=== PATIENT | female | born 1950 | race Caucasian/White ===

== ENCOUNTER 2017-03-07 15:39 | Day surgery (SDC) | payer MEDICARE, BC ==
[~2017-03-07] VITALS: Ht 157.5 cm; Wt 75.0 kg
[~2017-03-07 15:39] MED LIST: ATOR40TA49 PO; CHOL4 PO; CIPR500T4 PO; CITRTAB8 PO; CULT10CA2 PO; FLOV110A IN; HYDR-2768 PO; HYOS1SUB PO; KCL20 PO; LORT5TAB PO; LOTR5CAP3 PO; METR-1 PO; OMEG1CAP53 PO; ONDANSETRON HCL 4 MG/2 ML VIAL IV PUSH ONE; PARO12.5CR PO; WOMETAB2 PO
[2017-03-07 15:41] VITALS: BP 159/86; PULSE 67; RESP 12; TEMP 97.7; O2SAT 100
--- NOTE | 2017-03-07 15:46 | PD ---
Physical Exam Date Seen by Provider: March 07, 2017 Time Seen by Provider: 15:42 Narrative 66 YOWF C/O FB OBSTUCTION IN THROAT. ATE CHICKEN AND FEELS STUCK IN HER THROAT. H/O STRICTURE WITH DILATION VVS WAITING FOR BED PLACEMENT MDM Medical Record Reviewed: Yes Supervised Visit with EVARISTO: Arturo Yoo March 07, 2017 15:46
[2017-03-07] MEDS ORDERED: GLUCAGON 1 MG/ML VIAL IV PUSH ONE (16:30)
--- NOTE | 2017-03-07 16:45 | PD ---
HPI Chief Complaint: Foreign Body Time Seen by Provider: 16:05 Travel History International Travel<30 days: No Contact w/Intl Traveler<30days: No Traveled to known affect area: No History of Present Illness HPI This patient has history of esophageal stricture and an esophageal obstruction. He was eating a chicken sandwich at noon and fell to get stuck in her esophagus. She feels like it is still stuck there. Severity symptoms is moderate. She cannot eat or drink anything since that time. If she tries to drink water she vomits. No alleviating factors. Duration 4 hours. PFSH Past Medical History Arthritis: Yes Asthma: Yes High Cholesterol: Yes Diverticulitis: Yes Gastrointestinal Disorders: Yes (IBS) Hiatal Hernia: Yes Hypertension: Yes Psychiatric: Yes (impression) Past Surgical History Tonsillectomy: Yes Social History Alcohol Use: Yes Tobacco Use: No Substance Use: No Allergies-Medications (Allergen,Severity, Reaction): Coded Allergies: Penicillin (Verified Allergy, Unknown, 02/20/16) Reported Meds & Prescriptions Reported Meds & Active Scripts Active Lortab 5/500 (Acetaminophen/Hydrocodone Bitart) 5 Mg/500 Mg Tab 1-2 Tab PO Q6HPRN Cipro (Ciprofloxacin HCl) 500 Mg Tab 500 Mg PO BID Flagyl (Metronidazole) 500 Mg Tab 500 Mg PO BID TAKE UNTIL GONE Reported Hyoscyamine Sulfate 0.125 Mg Tab 0.125 Mg PO DAILY Flovent Hfa (Fluticasone Propionate) 110 Mcg Aer 110 Mcg IN DAILY Culturelle (Lactobacillus-Inulin) 10 B Cap 10 B PO DAILY Citracal (Calcium Citrate) 200 Mg Tab 200 Mg PO BID Womens Daily Formula (Multiple Vitamins W/ Minerals) Formula Tab 1 Tab PO DAILY Questran 4 Gm Pkt (Cholestyramine Resin) 4 Gm Soln 4 Gm PO EVERY OTHER DAY Kcl 20 Meq Tab (Potassium Chloride) 20 Meq Tabcr 20 Meq PO DAILY Paxil 12.5 Mg Tab Cr (Paroxetine HCl) 12.5 Mg Tabcr 12.5 Mg PO DAILY Lovaza (Fish Oil) 1 Gm Cap 4 Gm PO DAILY Lipitor 40 Mg Tab (Atorvastatin Calcium) 40 Mg Tab 40 Mg PO HS Hctz (Hydrochlorothiazide) 25 Mg Tab 25 Mg PO DAILY Lotrel 5/20 (Amlodipine Besylate-Benazepril 5MG/20MG) 5 - Cap 1 Cap PO DAILY Review of Systems General / Constitutional: No: Fever Eyes: No: Visual changes HENT: No: Headaches Cardiovascular: No: Chest Pain or Discomfort Respiratory: No: Shortness of Breath Gastrointestinal: Positive: Nausea, Vomiting, Dysphagia, No: Abdominal Pain Genitourinary: No: Dysuria Musculoskeletal: No: Pain Skin: No Rash Neurologic: No: Weakness Psychiatric: No: Depression Endocrine: No: Polydipsia Hematologic/Lymphatic: No: Easy Bruising Physical Exam Narrative GENERAL: Well-nourished, well-developed patient in no apparent distress. SKIN: Focused skin assessment reveals no rash and nodules. Skin is Warm and dry. HEAD: Atraumatic. Normocephalic. EYES: Pupils equal and round. No scleral icterus. No injection or drainage. ENT: No nasal bleeding or discharge. Mucous membranes pink and moist. NECK: Trachea midline. No JVD. CARDIOVASCULAR: Regular rate and rhythm. No murmur appreciated. RESPIRATORY: No accessory muscle use. Clear to auscultation. Breath sounds equal bilaterally. GASTROINTESTINAL: Abdomen soft, non-tender, nondistended. Hepatic and splenic margins not palpable. MUSCULOSKELETAL: No obvious deformities. No clubbing. No cyanosis. No edema. NEUROLOGICAL: Awake and alert. No obvious cranial nerve deficits. Motor grossly within normal limits. Normal speech. PSYCHIATRIC: Appropriate mood and affect; insight and judgment normal. Data Data Last Documented VS Vital Signs Date Time Temp Pulse Resp B/P Pulse Ox O2 Delivery O2 Flow Rate FiO2 03/07/17 15:41 97.7 67 12 159/86 100 Orders Iv Access Insert/Monitor (03/07/17 16:24) Complete Blood Count With Diff (03/07/17 16:24) Basic Metabolic Panel (Bmp) (03/07/17 16:24) Glucagon Inj (Glucagon Inj) (03/07/17 16:30) Npo After Midnight W/ Po Meds (03/07/17 Dinner) Consent (03/07/17 17:30) Labs Laboratory Tests Test 03/07/17 16:40 White Blood Count 6.4 TH/MM3 Red Blood Count 4.55 MIL/MM3 Hemoglobin 14.1 GM/DL Hematocrit 42.9 % Mean Corpuscular Volume 94.4 FL Mean Corpuscular Hemoglobin 30.9 PG Mean Corpuscular Hemoglobin 32.8 % Concent Red Cell Distribution Width 13.0 % Platelet Count 233 TH/MM3 Mean Platelet Volume 8.9 FL Neutrophils (%) (Auto) 67.5 % Lymphocytes (%) (Auto) 22.0 % Monocytes (%) (Auto) 7.0 % Eosinophils (%) (Auto) 2.3 % Basophils (%) (Auto) 1.2 % Neutrophils # (Auto) 4.3 TH/MM3 Lymphocytes # (Auto) 1.4 TH/MM3 Monocytes # (Auto) 0.5 TH/MM3 Eosinophils # (Auto) 0.2 TH/MM3 Basophils # (Auto) 0.1 TH/MM3 CBC Comment DIFF FINAL Differential Comment Sodium Level 140 MEQ/L Potassium Level 3.8 MEQ/L Chloride Level 107 MEQ/L Carbon Dioxide Level 23.6 MEQ/L Anion Gap 9 MEQ/L Blood Urea Nitrogen 16 MG/DL Creatinine 0.97 MG/DL Estimat Glomerular Filtration 57 ML/MIN Rate Random Glucose 90 MG/DL Calcium Level 9.5 MG/DL MDM Medical Decision Making Medical Screen Exam Complete: Yes Emergency Medical Condition: Yes Medical Record Reviewed: Yes Differential Diagnosis Esophageal stricture, esophageal foreign body, dyspepsia Narrative Course I have reviewed the patient's electronic medical record. IV placed CBC is normal Metabolic profile is normal I gave her a trial of water and she immediately vomited and could not get any water down. I gave her 1 mg IV glucose Placed a call to GI physician to discuss endoscopy Dr. Mcintyre is going to do endoscopy to evaluate and remove foreign body Patient will be admitted to same day surgery but suspicion is that patient would be discharge after endoscopy later this evening Diagnosis Primary Impression: Impacted esophageal foreign body Qualified Code: T18.108A - Impacted esophageal foreign body, initial encounter Admitting Information Admitting Physician Requests: Admit Darren Sanchez MD March 07, 2017 16:45
[2017-03-07 17:09] LABS: AUTOMATED NEUTROPHIL # 4.3 TH/MM3 (1.8-7.7); BASOPHIL # 0.1 TH/MM3 (0-0.2); BASOPHIL % 1.2 % (0.0-2.0); EOSINOPHIL # 0.2 TH/MM3 (0-0.4); EOSINOPHIL % 2.3 % (0.0-4.0); HEMATOCRIT 42.9 % (35.0-46.0); HEMO FLAGS DIFF FINAL; LYMPHOCYTE # 1.4 TH/MM3 (1.0-4.8); MEAN CELL VOLUME 94.4 FL (80.0-100.0); MEAN CORPUSCULAR HEMOGLOBIN 30.9 PG (27.0-34.0); MEAN CORPUSCULAR HGB CONC 32.8 % (32.0-36.0); NEUT % 67.5 % (16.0-70.0); PLATELET COUNT 233 TH/MM3 (150-450); RED BLOOD COUNT 4.55 MIL/MM3 (4.00-5.30); WHITE BLOOD COUNT 6.4 TH/MM3 (4.0-11.0)
--- NOTE | 2017-03-07 17:27 | PD.CONS ---
HPI History of Present Illness This is a 66 year old [lady] who presented to ER after eating chicken at lunch and feeling like it got stuck. SHe tried to drink water to flush it down and vomited the water right back up in a projectile fashion. ON the way home in the car she was spitting up saliva b/c she could not swallow it. SHe tried warm coca cola at home and that di dhelp a little bit to the poitn she was able to swallow saliva. She still cannot drink water. She had been having trouble swallowing a few days prior. SHe has hx food impaction requiring EGDs. She has had dilation. She says her GI in [place] doesnt want to do dilations. She tried drinking water here in the ER and threw it up. Says she has been given a sedative but has not tried drinking water again. Her last EGD was 2 y ago, routine with colonoscopy. She had prior EGD 3 y ago for foreign body retrieval. SHe has hx eosinophilic esophagitis. Denies significant reflux. No nausea. Hx IBS. PFSH Past Medical History HTN hyperlipidemia Past Surgical History appendectomy Coded Allergies: Penicillin (Verified Allergy, Unknown, 02/20/16) Family History DM - brother Social History 1-2 glasses wine daily, no tobacco or illegal drugs Review of Systems Constitutional: DENIES: Fever Eyes: DENIES: Blurred vision Ears, nose, mouth, throat: DENIES: Hearing loss Respiratory: DENIES: Cough Cardiovascular: DENIES: Chest pain Gastrointestinal: COMPLAINS OF: Vomiting, Difficulty Swallowing, DENIES: Abdominal pain, Black stools, Bloody stools, Diarrhea, Nausea Genitourinary: DENIES: Hematuria Musculoskeletal: DENIES: Joint pain Integumentary: DENIES: Pruritus Hematologic/lymphatic: DENIES: Bruising Neurologic: DENIES: Abnormal gait Psychiatric: DENIES: Confusion GI Exam Vitals I&O Vital Signs Date Time Temp Pulse Resp B/P Pulse Ox O2 Delivery O2 Flow Rate FiO2 03/07/17 15:41 97.7 67 12 159/86 100 Laboratory Test 03/07/17 16:40 White Blood Count 6.4 TH/MM3 Red Blood Count 4.55 MIL/MM3 Hemoglobin 14.1 GM/DL Hematocrit 42.9 % Mean Corpuscular Volume 94.4 FL Mean Corpuscular Hemoglobin 30.9 PG Mean Corpuscular Hemoglobin 32.8 % Concent Red Cell Distribution Width 13.0 % Platelet Count 233 TH/MM3 Mean Platelet Volume 8.9 FL Neutrophils (%) (Auto) 67.5 % Lymphocytes (%) (Auto) 22.0 % Monocytes (%) (Auto) 7.0 % Eosinophils (%) (Auto) 2.3 % Basophils (%) (Auto) 1.2 % Neutrophils # (Auto) 4.3 TH/MM3 Lymphocytes # (Auto) 1.4 TH/MM3 Monocytes # (Auto) 0.5 TH/MM3 Eosinophils # (Auto) 0.2 TH/MM3 Basophils # (Auto) 0.1 TH/MM3 CBC Comment DIFF FINAL Differential Comment Physical Examination HEENT: EOMI; normocephalic; atraumatic; no jaundice. CHEST: CTA CARDIAC: RRR ABDOMEN: Soft, nondistended, nontender; no hepatosplenomegaly; bowel sounds are present in all four quadrants. EXTREMITIES: No clubbing, cyanosis, or edema. SKIN: Normal; no rash; no jaundice. 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 Assessment and Plan Plan ASSESSMENT - dysphagia with regurgitation, poss foreign body - pt felt pc of chicken get stuck at lunch, has been unable to keep water down. Tried glucagon in ER and failed subsequent attempt to swallow water, observed by myself and Dr Mcintyre. She has hx esophagea strictures, dysphagia. Will do EGD with foreign body removal PLAN - EGD with foreign body removal now - obtain consents - keep NPO - further recommendations to follow procedure This pt seen by myself and Dr Mcintyre and this note is written on his behalf. Estella Toussaint March 07, 2017 17:27
[2017-03-07 17:33] LABS: BICARBONATE 23.6 MEQ/L (21.0-32.0)
[2017-03-07 17:39] LABS: POTASSIUM 3.8 MEQ/L (3.5-5.1)
[2017-03-07] MEDS ORDERED: ALIG4CAP PO (18:31)
[2017-03-07] MEDS ORDERED: LEXA10TA PO (18:31)
[2017-03-07] MEDS ORDERED: WOMETAB2 PO (18:31)
[2017-03-07] MEDS ORDERED: HYOS0.37 PO (18:31)
[2017-03-07] MEDS ORDERED: FENO145T2 PO (18:31)
[2017-03-07] MEDS ORDERED: OMEG100037 PO (18:31)
[2017-03-07] MEDS ORDERED: ATOR10TA15 PO (18:33)
[2017-03-07] MEDS ORDERED: LOTR5CAP3 PO (18:33)
[2017-03-07] MEDS ORDERED: PROPOFOL 200 MG/20 ML AMP IV ONE (19:30)
[2017-03-07] MEDS ORDERED: DO NOT ADM ANY ANTICOAGULANT DRUGS PRN (20:10)
[2017-03-07] MEDS ORDERED: PANTOPRAZOLE SODIUM 40 MG VIAL ONE (20:18)
--- NOTE | 2017-03-07 20:25 | HHI.GIFU ---
Subjective Remarks Immediate post procedure note: EGD with food bolus removal with esophageal dilatation over guidewire. Indication: esophageal food bolus obstruction Meds: GET Findings: Esophagus: distal food bolus obstructing. Removed by pulling out with a snare. Stomach: normal Duodenum: normal Esophageal dilatation performed over guidewire, 16mm. Relook showed dilated stricture, mild bleeding. Imp: Esophageal obstruction from food bolus Esophageal stricture. REc: Maalox 60cc po now. Protonix 80mg iv now. Start PPI daily tomorrow morning. Follow up in office in 2-4 weeks. Objective Vitals I&O Vital Signs Date Time Temp Pulse Resp B/P Pulse Ox O2 Delivery O2 Flow Rate FiO2 03/07/17 15:41 97.7 67 12 159/86 100 Laboratory Laboratory Tests Test 03/07/17 16:40 White Blood Count 6.4 Red Blood Count 4.55 Hemoglobin 14.1 Hematocrit 42.9 Mean Corpuscular Volume 94.4 Mean Corpuscular Hemoglobin 30.9 Mean Corpuscular Hemoglobin 32.8 Concent Red Cell Distribution Width 13.0 Platelet Count 233 Mean Platelet Volume 8.9 Neutrophils (%) (Auto) 67.5 Lymphocytes (%) (Auto) 22.0 Monocytes (%) (Auto) 7.0 Eosinophils (%) (Auto) 2.3 Basophils (%) (Auto) 1.2 Neutrophils # (Auto) 4.3 Lymphocytes # (Auto) 1.4 Monocytes # (Auto) 0.5 Eosinophils # (Auto) 0.2 Basophils # (Auto) 0.1 CBC Comment DIFF FINAL Differential Comment Sodium Level 140 Potassium Level 3.8 Chloride Level 107 Carbon Dioxide Level 23.6 Anion Gap 9 Blood Urea Nitrogen 16 Creatinine 0.97 Estimat Glomerular Filtration 57 Rate Random Glucose 90 Calcium Level 9.5 Physical Exam HEENT: Pupils round and reactive to light; normocephalic; atraumatic; no jaundice. Throat is clear. NECK: Neck is supple, no JVD, no lymphadenopathy. CHEST: Chest is clear to auscultation and percussion. CARDIAC: Regular rate and rhythm with no murmur gallop or rubs. ABDOMEN: Soft, nondistended, nontender; no hepatosplenomegaly; bowel sounds are present in all four quadrants. EXTREMITIES: No clubbing, cyanosis, or edema. SKIN: Normal; no rash; no jaundice. 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 Assessment and Plan Plan ASSESSMENT Esophageal foreign body removed. Esophageal stricture dilated 16mm GERD PLAN Home after recovery. Start PPI daily tomorrow morning. followup in office in 2 -4 weeks. redilate as needed. Meliton Mcintyre MD March 07, 2017 20:25
[2017-03-07] MEDS ORDERED: ALUMINUM/MAGNESIUM/SIMETH 30 ML CUP PO ONE (20:30)
[2017-03-07] MEDS ORDERED: PANTOPRAZOLE SODIUM 40 MG VIAL IV PUSH ONE (20:30)
[2017-03-07 20:50] VITALS: BP 131/71; PULSE 66; RESP 16; TEMP 97.5; O2SAT 95
--- NOTE | 2017-03-09 13:08 | MR ---
cc: MELITON MCINTYRE,ADIA Greenfield MD DATE: 03/07/2017 PROCEDURE: Esophagogastroduodenoscopy with foreign body removal with esophageal dilatation over guide wire. INDICATIONS FOR PROCEDURE: Esophageal obstruction from food. REFERRING PHYSICIAN: Dr. Sanchez PROCEDURE: After informed consent was obtained the patient was taken to the operating room. She was placed under general endotracheal anesthesia. After adequate sedation was achieved, the Pentax video gastroscope was inserted in the oropharynx and advanced down to the esophagus reaching the distal portion. There was a food bolus there that was grasped with the snare and withdrawn out through the mouth holding onto it with the snare. The scope was then reinserted and advanced down through the stomach into the duodenum reaching the descending portion. It was withdrawn slowly examining the mucosal surfaces carefully. The gastric contents were aspirated. Retroflex exam was performed. The scope was then straightened and advanced to the antrum where a guide wire was left in place. Over the guide wire, a 16 millimeter Savary dilator was passed down through the esophagus with some resistance at the distal part. The dilator and guide wire were then removed. A relook examination showed that there was some blood in the distal esophagus but no apparent complication. The scope was then withdrawn and the procedure was terminated. She was extubated and returned to the PACU in stable condition. FINDINGS: 1. The esophagus was obstructed with a distal foreign body, meat. This was removed as described above. 2. There was a stricture distally in the esophagus. This was dilated with 16 millimeter Savary dilator as described above. 3. The stomach was normal. 4. Duodenum was normal. IMPRESSION: 1. Esophageal foreign body with obstruction. 2. Distal esophageal stricture dilated to 16 millimeter. 3. GERD. RECOMMENDATIONS: 1. Will give the patient Maalox 60 cc right now in recovery and also 80 milligrams of Protonix IV to prevent further irritation of the site. 2. She is advised to take proton pump inhibitor daily until she can come to the office. 3. She should follow up in the office in 2-4 weeks. 4. She should have a repeat EGD with dilatation once she notices some dysphagia. Meliton Mcintyre MD [facility] /8:30 PM /12:58 PM
== END 2017-03-07 20:35 | disposition home or self-care (01) ==
LOC: NEPE 15:39 → CSDC 18:45 → HSDI 18:46 → CSDC 20:35
PROVIDERS: ATTEND Internal Medicine Gastroenterology
DX: T18.128A Food in esophagus causing other injury, initial encounter (principal); K22.2 Esophageal obstruction; K58.9 Irritable bowel syndrome, unspecified; K44.9 Diaphragmatic hernia without obstruction or gangrene; K21.9 Gastro-esophageal reflux disease without esophagitis; I10 Essential (primary) hypertension; E78.5 Hyperlipidemia, unspecified; E78.00 Pure hypercholesterolemia, unspecified; J45.909 Unspecified asthma, uncomplicated; Z88.0 Allergy status to penicillin; Z90.49 Acquired absence of other specified parts of digestive tract
CPT/HCPCS: 00740; 43247; 43248; 80048; 85025; 96374; 99283; C1769; C9113; J1610; J2405; J3010